=== PATIENT | female | born 1995 | race Two or more races ===

== ENCOUNTER 2022-06-12 20:30 | Emergency (ER) | payer MEDICAID ==
[2022-06-13] MEDS ORDERED: TETANUS-DIPTH-ACEL PERTUSSIS 0.5ML SYR Tdap IM ONE
[2022-06-13] MEDS ORDERED: LIDOCAINE 1% HCL (LOCAL ANESTH.) INJ 20ML MDV IJ ONE
[2022-06-13 01:34] VITALS: BP 103/58
== END 2022-06-13 02:24 | disposition home or self-care (01) ==
LOC: ER 20:30
DX: S61.214A Laceration without foreign body of right ring finger without damage to nail, initial encounter (principal); W26.0XXA Contact with knife, initial encounter; Y93.89 Activity, other specified; Y92.89 Other specified places as the place of occurrence of the external cause; Y99.8 Other external cause status
CPT/HCPCS: 12001; 90471; 90715

== ENCOUNTER 2022-06-23 16:50 | Emergency (ER) | payer MEDICAID ==
[~2022-06-23] VITALS: Ht 172.7 cm; Wt 62.5 kg
[2022-06-23 17:10] VITALS: BP 118/73
== END 2022-06-23 20:58 | disposition home or self-care (01) ==
LOC: ER 16:50
DX: S61.214D Laceration without foreign body of right ring finger without damage to nail, subsequent encounter (principal); X58.XXXD Exposure to other specified factors, subsequent encounter